=== PATIENT | male | born 1985 | race Hispanic/Latino ===

== ENCOUNTER 2018-02-28 14:04 | Emergency (ER) | payer SELFPAY ==
--- NOTE | 2018-02-28 14:41 | RAD ---
LEFT HAND 3 VIEWS: Date: )02/28/18 HISTORY: Hand pain and swelling after trauma. FINDINGS: There are arthritic changes of the base of the fifth metacarpal at its articulation with the hamate. There is what appears to be some probably old post-traumatic change of the PIP joint of the little fi nger. There is no acute bony process. IMPRESSION: No acute injury. POS: [facility]
== END 2018-02-28 14:51 | disposition home or self-care (01) ==
LOC: SCSER 14:04
DX: S60.222A Contusion of left hand, initial encounter (principal); J45.909 Unspecified asthma, uncomplicated; F17.210 Nicotine dependence, cigarettes, uncomplicated; I45.6 Pre-excitation syndrome; W22.03XA Walked into furniture, initial encounter
CPT/HCPCS: 99406

== ENCOUNTER 2018-03-05 19:06 | Observation (INO) | payer SELFPAY ==
[2018-03-05 19:37] LABS: #Basophils 0.1 thou/uL (0.0-0.2); #Eosinphils 0.3 thou/uL (0.0-0.7); #Lymphocytes 2.6 thou/uL (1.20-3.40); #Monocytes 0.9 thou/uL (0.11-0.59); #Neutrophils 11.7 thou/uL (1.40-6.50); %Basophils 0.6 % (0.0-1.0); %Eosinophils 1.9 % (0.0-10.0); %Lymphocytes 16.5 % (21.0-51.0); %Monocytes 5.9 % (0.0-10.0); %Neutrophils 75.2 % (42.0-75.0); Hemoglobin 16.7 g/dL (14.0-18.0); Mean Corpuscular HGB CONC 35.2 g/dL (32.0-36.0); Mean Corpuscular Hemoglobin 33.3 pg (27.0-31.0); Mean Corpuscular Volume 94.4 fl (80.0-94.0); Mean Platelet Volume 8.6 fL (7.4-10.4); Platelet Count 355 thou/uL (130-400); RBC Distribution Width 12.7 % (11.5-14.5); Red Blood Cell (RBC) Count 5.02 mill/uL (4.70-6.10); White Blood Cell (WBC) Count 15.6 thou/uL (4.8-10.8)
--- NOTE | 2018-03-05 19:50 | RAD ---
PORTABLE AP CHEST X-RAY: 03/05/2018 HISTORY: Chest pain with nausea and vomiting for several hours. COMPARISON: 09/30/2015 FINDINGS: The cardiac silhouette and pulmonary vasculature are within normal limits. The lungs remain clear. There has been no interval change from the prior exam. IMPRESSION: No acute cardiopulmonary process. POS: [facility]
[2018-03-05 19:55] LABS: ALT (SGPT) 51 U/L (8-55); AST (SGOT) 30 U/L (5-34); Albumin 4.9 g/dL (3.5-5.0); Alkaline Phosphatase 98 U/L (40-150); Anion Gap 12 mmol/L (10-20); BUN (Urea Nitrogen) 12 mg/dL (8.9-20.6); Bilirubin, Total 0.3 mg/dL (0.2-1.2); Calc. Creatinine Clearance 0 mL/min (70-130); Calcium 10.7 mg/dL (7.8-10.44); Carbon Dioxide 27 mmol/L (22-29); Chloride 102 mmol/L (98-107); Estimated GFR-MDRD Greater than 90; Globulin 3.6 g/dL (2.4-3.5); Glucose 150 mg/dL (70-105); Lipase 34 U/L (8-78); Protein, Total 8.5 g/dL (6.0-8.3); Sodium 137 mmol/L (136-145)
[2018-03-05 19:57] LABS: CKMB 2.1 ng/mL (0-6.6)
[2018-03-05 20:38] LABS: Bilirubin Negative (Negative); Blood, Urine Negative (Negative); Clarity CLEAR (Clear); Glucose, Urine (Dipstick) Negative (Negative); Leukocyte Negative (Negative); Nitrite Negative (Negative); Protein, Urine (Dipstick) Negative (Neg-Trace); Specific Gravity, Urine 1.012 (1.002-1.036); Urobilinogen 0.2 mg/dL (0.2-1.0); pH, Urine 7.5 (5.0-9.0)
[2018-03-05] MEDS ORDERED: diphenhydrAMINE 25 MG CAP ONE ×3 (20:44→20:49)
[2018-03-05] MEDS ORDERED: Ketorolac Tromethamine 30 MG/ML VIAL ONE (20:44)
[2018-03-05] MEDS ORDERED: Acetaminophen 500 MG TAB ONE (20:44)
[2018-03-05] MEDS ORDERED: Water For Inject, Bacteriostat 30 ML ONE (21:23)
[2018-03-05] MEDS ORDERED: Prochlorperazine Maleate 5 MG TAB ONE (21:23)
[2018-03-05] MEDS ORDERED: methylPREDNISolone Sod Succ/PF 125 MG/2 ML VIAL ONE (21:23)
--- NOTE | 2018-03-05 21:34 | CT ---
NONCONTRAST CT HEAD: 03/05/2018 HISTORY: Headache. Hypertension. Headache not relieved after treatment with Motrin. COMPARISON: 09/30/2015 FINDINGS: There is no evidence of a hemorrhage, acute infarction, mass effect, or midline shift. The ventricul ar system is normal in size, shape, and position. A mucus retention cyst is present in the left maxi llary antrum. There has been no other interval change from the prior exam. IMPRESSION: No acute intracranial abnormalities demonstrated. POS: [facility]
--- NOTE | 2018-03-05 21:57 | PDOC.FPRHP ---
- History of Present Illness Chief Complaint: Chest Pain History of Present Illness: 32 yo male presents for evaluation for chest pain. He states that he has had chest congestion and tightness for roughly one week. He notes the pain came on today when he was sitting on the couch. He does note the pain seems to worsen when he increases his activity level. He states that he has had associated nausea, cough and headache. His headache just began today and hasn't been relieved. 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 He also states that he has asthma, but he does not take any inhalers for this. He denies fevers ,chills, or vision changes. ED Course: Levofloxacin Compazine Solu-medrol 1 L NS bolus Toradol Benadryl Tylenol Duoneb - Allergies/Adverse Reactions Allergies Allergy/AdvReac Type Severity Reaction Status Date / Time No Known Allergies Allergy Verified 03/05/18 23:45 - Home Medications Medication Instructions Recorded Confirmed Type Lisinopril 10 mg PO DAILY 03/23/14 03/05/18 History - History PMHx: Hypertension, Asthma,. 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 Current 1/2 PPD smoker. Drinks alcohol socially approximately twice per month. - Review of Systems General: denies: fever/chills Eyes: denies: eye pain ENT: denies: nasal congestion, rhinorrhea Respiratory: reports: shortness of breath. denies: cough, congestion Cardiovascular: reports: chest pain. denies: palpitation, orthopnea Gastrointestinal: reports: nausea. denies: vomiting, diarrhea, constipation Genitourinary: denies: incontinence Skin: denies: rashes, lesions, jaundice Musculoskeletal: denies: pain, tenderness, stiffness Neurological: denies: numbness, syncope Psychological: denies: anxiety, depression - Vital signs BP: [142/70] HR: [85] RR: [18] Tmax: [98.3] Pox: [97]% on [Rmair] Wt: [98 kg] - Physical Exam Constitutional: NAD, awake, alert and oriented HEENT: PERRLA, TM's clear and intact, grossly normal hearing, normal nasal mucosa, MMM Neck: supple, trachea midline Heart: RRR, normal S1/S2, no murmurs/rubs/gallops, no edema -Lungs: Wheezing bilaterally. Worse on Right side. Abdomen: soft, non-tender, bowel sounds present, no masses/distention Musculoskeletal: normal structure, normal tone, ROM grossly normal Neurological: no focal deficit, CN II-XII intact, normal sensation Skin: no rash/lesions, good turgor Heme/Lymphatic: no unusual bruising or bleeding, no purpura, no petechia Psychiatric: normal mood and affect, good judgment and insight, intact recent and remote memory FMR H&P: Results - Labs Result Diagrams: 03/05/18 19:03/05/18 19: Lab results: WBC 15.6 thou/uL (4.8-10.8) H 03/05/18 19: Hgb 16.7 g/dL (14.0-18.0) 03/05/18: Hct 47.4 % (42.0-52.0) 03/05/18: MCV 94.4 fl (80.0-94.0) H 03/05/18 19: Plt Count 355 thou/uL (130-400) 03/05/18 19: Neutrophils % 75.2 % (42.0-75.0) H 03/05/18 19: Sodium 137 mmol/L (136-145) 03/05/18 19: Potassium 4.0 mmol/L (3.5-5.1) 03/05/18: Chloride 102 mmol/L (98-107) 03/05/18: Carbon Dioxide 27 mmol/L (22-29) 03/05/18 19: BUN 12 mg/dL (8.9-20.6) 03/05/18 19: Creatinine 0.91 mg/dL (0.6-1.3) 03/05/18 19: Glucose 150 mg/dL (70-105) H 03/05/18 19: Calcium 10.7 mg/dL (7.8-10.44) H 03/05/18 19: Total Bilirubin 0.3 mg/dL (0.2-1.2) 03/05/18 19: AST 30 U/L (5-34) 03/05/18 19: ALT 51 U/L (8-55) 03/05/18 19: Alkaline Phosphatase 98 U/L (40-150) 03/05/18 19: CK-MB (CK-2) 2.1 ng/mL (0-6.6) 03/05/18 19: B-Natriuretic Peptide 18.9 pg/mL (0-100) 03/05/18 19:23 Serum Total Protein 8.5 g/dL (6.0-8.3) H 03/05/18 19: Albumin 4.9 g/dL (3.5-5.0) 03/05/18 19: Lipase 34 U/L (8-78) 03/05/18 19: Urine Ketones Negative mg/dL (Negative) 03/05/18 20:25 Urine Blood Negative (Negative) 03/05/18 20: Urine Nitrite Negative (Negative) 03/05/18 20:25 Ur Leukocyte Esterase Negative (Negative) 03/05/18 20:25 - EKG Interpretation EK lead EKG shows normal sinus rhythm, Rate (beats per minute): 95, ST, depression, in lead III, in aVf, new since 30 September 2015, AL 124ms. No delta waves. FMR H&P: A/P - Problem List (1) Asthma exacerbation Current Visit: Yes Status: Acute Code(s): J45.901 - UNSPECIFIED ASTHMA WITH (ACUTE) EXACERBATION (2) Atypical chest pain Current Visit: Yes Status: Acute Code(s): R07.89 - OTHER CHEST PAIN (3) Hyperglycemia Current Visit: Yes Status: Acute Code(s): R73.9 - HYPERGLYCEMIA, UNSPECIFIED (4) HTN (hypertension) Current Visit: Yes Status: Acute Code(s): I10 - ESSENTIAL (PRIMARY) HYPERTENSION - Plan 1. Asthma exacerbation - Steroids - Duonebs - Will hold on antibiotics 2. Atypical chest pain - EKG changes from previous in 2014 - Will consult Cardiology in AM - Troponins negative x2, will trend third - Mg and Phos Pending - Aspirin 3. Hyperglycemia - No diagnosis of DM - Will check HgbA1C 4. HTN - Continue Home Lisinopril CODE STATUS: FULL CODE Disposition: Stable, will admit to Telemetry Observation. FMR H&P: Upper Level - Plan Date/Time: 03/05/182153 I, Tesfaye Saha, have evaluated this patient and agree with findings/plan as outlined by research intern resident. Pertinent changes/additions are listed here. 32 yo M pmhx WPW, asthma, and HTN presents for evaluation of CP. Describes it as left sided, sharp, non-radiating and associated with nausea and SANCHEZ but no diaphoresis or palpitations. Patient also notes a one week history of productive cough, wheezing, and mild dyspnea without fever or chills. No known sick contacts. States that he has associated seasonal allergy type symptoms in the spring. Also smokes 1/2 PPD. Vitals: BP: 142/70 HR: 85 RR: 18 O2 sat: 97% on RA PE: Gen: AAOx3, NAD CV: RRR, no m/g/r Lungs: insp wheezing and rhonchi b/l Ext: no c/c/e Pulses: 2+ LE's b/l EKG: NSR; new ST depression in II, III, and AVF; no delta wave. CXR and Brain CT: no acute disease A/P: 1) Atypical chest pain, suspect 2/2 asthma exacerbation v. less likely ACS: Placing in observation to telemetry floor. New ST depression in inferior leads on ECG but troponins negative so far, will cont. to trend. Pt currently asymptomatic, plan to consult cardiology in AM. NPO after MN. Will treat concurrently for asthma exacerbation with nebs, steroids cough suppressant. Consider adding antihistamine v. Singulair given report of allergy symptoms. Defering abx for now as clinical symptoms not consistent, no hypoxia, and no findings on CXR. 2) H/o WPW: pt states he was diagnosed at this facility but cannot find record of this in EMR and never placed on beta-vasile. Will monitor closely with low threshold for cardiology consult if CP returns. 3) HTN: h/o non-compliance with medications but states he has taken lisinopril the past few days. BP mildly elevated initially in ER. Continue home dosage and adjust if needed. Attending Addendum - Attending Addendum Date/Time: 03/05/18 7218 I personally evaluated the patient and discussed the management with Dr. Mcgraw on 03/05/18. I agree with the History, Examination, Assessment and Plan documented above with any addition or exceptions noted below. Patient with asthma exacerbation, will treat with steroids and nebs. CXR was negative, no fever and minimal cough. Will hold Levaquin for now, as he likely does not have PNA. In addition, he has atypical CP (Jaylin score 0, likely non -anginal) and HEART score of 3 with EKG changes suspicious for ST segment depression, although trop neg x2. Give ASA 81 mg if not given in ER. Check FLP. With questionable history of WPW, will monitor overnight and consult cardiology in the morning. Would likely benefit from stress test given PMH, depending on cardiology recs. In addition, he has hyperglycemia with a random glucose of 150 and obesity. Will check HgA1c to evaluate further for diabetes. Continue lisinopril for HTN. Calcium mildly elevated, will recheck in AM.
[2018-03-05 23:00] LABS: Troponin I Less than 0.010 ng/mL (< 0.028)
[2018-03-05] MEDS ORDERED: Guaifenesin DM 100-10/5 ML UDCUP PO PRN (23:13)
[2018-03-05] MEDS ORDERED: Ondansetron ODT 4 MG TAB PO PRN (23:13)
[2018-03-05 23:38] LABS: Phosphorus 2.7 mg/dL (2.3-4.7)
[2018-03-06] MEDS ORDERED: Aspirin 81 mg Enteric Coated Tablet PO SCH (00:15)
[2018-03-06] MEDS ORDERED: Aspirin 325 mg Enteric Coated Tablet PO SCH (01:31)
[2018-03-06 01:54] LABS: Hemoglobin A1c 6.2 % (4.0-6.0)
[2018-03-06 02:11] LABS: Troponin I 0.019 ng/mL (< 0.028)
[2018-03-06 02:18] LABS: ALT (SGPT) 52 U/L (8-55); AST (SGOT) 24 U/L (5-34); Albumin 4.8 g/dL (3.5-5.0); Alkaline Phosphatase 89 U/L (40-150); Anion Gap 12 mmol/L (10-20); BUN (Urea Nitrogen) 12 mg/dL (8.9-20.6); Bilirubin, Total 0.2 mg/dL (0.2-1.2); Calc. Creatinine Clearance 143 mL/min (70-130); Calcium 11.2 mg/dL (7.8-10.44); Carbon Dioxide 26 mmol/L (22-29); Cardiac Risk 5.4 (Less than 4.5); Chloride 101 mmol/L (98-107); Cholesterol 222 mg/dl (< 200 Desired); Estimated GFR-MDRD 84; Globulin 3.5 g/dL (2.4-3.5); Glucose 236 mg/dL (70-105); HDL Cholesterol 41 mg/dL (>60 Neg Risk); LDL Cholesterol, Calculated 127 mg/dL; Potassium 4.1 mmol/L (3.5-5.1); Protein, Total 8.3 g/dL (6.0-8.3); Sodium 135 mmol/L (136-145); Triglycerides 272 mg/dL (Less than 150)
--- NOTE | 2018-03-06 08:34 | PDOC.FM ---
- Subjective Subjective: Patient reports that his SOB, wheezing, and chest pain have all improved. He is no longer having any chest pain. He reports that his only symptom this AM is a headache. He slept well overnight. - Objective MAR Reviewed: Yes Vital Signs & Weight: Vital Signs (12 hours) Temp Pulse Resp BP BP Pulse Ox 03/06/18 07:40 97.8 F 88 18 03/06/18 07:30 97.8 F 88 18 145/80 H 94 L 03/06/18 04:40 80 18 161/83 H 92 L 03/06/18 01:51 96 Result Diagrams: 03/05/18 19:22 03/06/18 01:37 <Lucy Cole - Last Filed: 03/06/18 08:32> - Objective Vital Signs & Weight: Vital Signs (12 hours) Temp Pulse Resp BP BP Pulse Ox 03/06/18 11:08 97.9 F 90 18 131/73 94 L 03/06/18 07:40 97.8 F 88 18 03/06/18 07:30 97.8 F 88 18 145/80 H 94 L 03/06/18 04:40 80 18 161/83 H 92 L Result Diagrams: 03/05/18 19:22 03/06/18 01:37 <Ruel White - Last Filed: 03/06/18 13:56> Phys Exam - Physical Examination Constitutional: NAD HEENT: moist MMs Respiratory: no wheezing, no rales, no rhonchi, clear to auscultation bilateral Cardiovascular: RRR, no significant murmur, no rub Gastrointestinal: soft, non-tender, no distention, positive bowel sounds Musculoskeletal: no edema, pulses present Neurological: non-focal, moves all 4 limbs Psychiatric: normal affect, A&O x 3 Skin: normal turgor, cap refill <2 seconds <Lucy Cole - Last Filed: 03/06/18 08:32> Dx/Plan (1) Asthma exacerbation Code(s): J45.901 - UNSPECIFIED ASTHMA WITH (ACUTE) EXACERBATION Status: Acute QualifierTitle: Asthma severity: unspecified severity Asthma persistence : unspecified Qualified Code(s): J45.901 - Unspecified asthma with (acute) exacerbation (2) Atypical chest pain Code(s): R07.89 - OTHER CHEST PAIN Status: Acute (3) HTN (hypertension) Code(s): I10 - ESSENTIAL (PRIMARY) HYPERTENSION Status: Acute QualifierTitle: Hypertension type: essential hypertension Qualified Code( s): I10 - Essential (primary) hypertension (4) Hyperglycemia Code(s): R73.9 - HYPERGLYCEMIA, UNSPECIFIED Status: Acute (5) Tobacco abuse Code(s): Z72.0 - TOBACCO USE Status: Acute - Plan Plan: 1. Asthma exacerbation Patient initially had diffuse wheezes on exam associated with a cough and chest tightness. This AM he is much improved with no wheezing. - Steroids - Duonebs - Will hold on antibiotics as there are no signs of infection 2. Atypical chest pain EKG showed ST depression in II and aVF that is new from prior EKG in 2015. Pt is no longer having any chest pain. Trops negative x3 - Will consider cards consult vs have pt f/u outpatient - Aspirin 3. WPW Questionable history per the patient. He states he was diagnosed 4-5 years ago at this facility. No records found at this time. He has never seen a triage registered nurse and has not ever been placed on a medication. No delta waves seen on EKG. - Consider cards consult vs outpatient f/u 4. Hyperglycemia A1c 6.2. - Will international student counselor on diet and exercise - Will have pt f/u with PCP to continue to monitor and international student counselor that he is at risk for developing diabetes if he does not make lifestyle changes 5. HTN Patient reports he takes his lisinopril intermittently. - Continue home Lisinopril 6. Tobacco Abuse - Counseling for cessation <Lucy Cole - Last Filed: 03/06/18 08:32> Attending Addendum - Attending Addendum Date/Time: 03/06/18 9158 I personally evaluated the patient and discussed the management with Dr. Cole. I agree with the History, Examination, Assessment and Plan documented above with any addition or exceptions noted below. Patient admitted for chest tightness thought due to asthma exacerbation, and his symptoms are improved on duonebs and steroid regimen. He did have an initial abnormal EKG which evidence of ischemia in the inferior leads, and has a supposed history of WPW. We will get cardiology input on patient and consider nuclear stress testing due to his complaint and his multiple risk factors for cardiovascular disease. <Ruel White - Last Filed: 03/06/18 13:56>
[2018-03-06] MEDS: Aspirin 81 mg Enteric Coated Tablet PO SCH (09:12)
[2018-03-06] MEDS: predniSONE 20 MG TAB PO SCH (09:12)
[2018-03-06] MEDS ORDERED: Regadenoson 0.4 MG/5 ML SYRINGE ONE (09:49)
[2018-03-06] MEDS: Acetaminophen 325 MG TAB PO PRN ×2 (11:39→18:44)
[2018-03-06] MEDS ORDERED: Famotidine 20 MG TAB PO SCH (12:00)
[2018-03-06] MEDS: Famotidine 20 MG TAB PO SCH (12:50)
[2018-03-06 13:32] LABS: Amphetamine Not Detected (NotDetected); Barbiturates Screen Not Detected (NotDetected); Benzodiazepine Screen Not Detected (NotDetected); Cocaine Metabolite Screen Not Detected (NotDetected); Medtox Control Line Valid? VALID (VALID); Medtox Reader # READER 1; Methadone Not Detected (NotDetected); Methamphetamine Not Detected (NotDetected); Opiate Screen Detected (NotDetected); Oxycodone Screen Not Detected (NotDetected); Phencyclidine (PCP) Not Detected (NotDetected); THC/Cannabinoid Screen Not Detected (NotDetected); Tricyclic Screen Not Detected (NotDetected)
[2018-03-06] MEDS ORDERED: Atorvastatin Calcium 40 MG TAB PO SCH (21:00)
--- NOTE | 2018-03-06 23:45 | PDOC.EVN ---
Event Note - Event Note Event Note: Residents were notified of patient having HR of 120s-150s. Residents arrived to evaluate patient. He was resting in no acute distress. He only admits to being able to feel his heart racing. No other complaints. Cardiology was called and they recommended no intervention at this time. Cardiology did recommend Diltiazem if patient became symptomatic. Will hold off on treatment at this time.
[2018-03-07] MEDS: traMADol HCl 50 MG TAB PO PRN ×2 (01:20→08:32)
[2018-03-07] MEDS: Acetaminophen 325 MG TAB PO PRN ×2 (01:20→08:32)
[2018-03-07] MEDS ORDERED: HumaLOG 300 UNITS/3 ML VIAL SC PRN ×2 (03:13)
[2018-03-07] MEDS ORDERED: Dextrose 5% in Water 1,000 ML IV PRN (03:13)
[2018-03-07] MEDS ORDERED: Dextrose 50% Abboject 50 ML SYRINGE IVP PRN (03:13)
[2018-03-07] MEDS ORDERED: CEFAZOLIN/Water 2 GM/20 ML SYRINGE SLOW IVP SCH (03:30)
[2018-03-07 04:14] VITALS: TEMP 98.3
[2018-03-07 07:14] LABS: #Basophils 0.1 thou/uL (0.0-0.2); #Eosinphils 0.1 thou/uL (0.0-0.7); #Lymphocytes 3.6 thou/uL (1.20-3.40); #Monocytes 1.4 thou/uL (0.11-0.59); #Neutrophils 12.1 thou/uL (1.40-6.50); %Basophils 0.4 % (0.0-1.0); %Eosinophils 0.4 % (0.0-10.0); %Lymphocytes 20.9 % (21.0-51.0); %Monocytes 8.4 % (0.0-10.0); Hemoglobin 14.6 g/dL (14.0-18.0); Mean Corpuscular HGB CONC 33.4 g/dL (32.0-36.0); Mean Corpuscular Hemoglobin 32.1 pg (27.0-31.0); Mean Corpuscular Volume 96.2 fl (80.0-94.0); Mean Platelet Volume 8.5 fL (7.4-10.4); Platelet Count 348 thou/uL (130-400); RBC Distribution Width 13.2 % (11.5-14.5); Red Blood Cell (RBC) Count 4.54 mill/uL (4.70-6.10); White Blood Cell (WBC) Count 17.2 thou/uL (4.8-10.8)
[2018-03-07 07:56] LABS: Anion Gap 14 mmol/L (10-20); BUN (Urea Nitrogen) 25 mg/dL (8.9-20.6); Calc. Creatinine Clearance 170 mL/min (70-130); Calcium 9.3 mg/dL (7.8-10.44); Carbon Dioxide 23 mmol/L (22-29); Chloride 106 mmol/L (98-107); Estimated GFR-MDRD Greater than 90; Glucose 136 mg/dL (70-105); Sodium 139 mmol/L (136-145)
[2018-03-07] MEDS: Famotidine 20 MG TAB PO SCH (08:30)
[2018-03-07] MEDS: predniSONE 20 MG TAB PO SCH (08:31)
[2018-03-07] MEDS: Aspirin 81 mg Enteric Coated Tablet PO SCH (08:31)
--- NOTE | 2018-03-07 08:54 | PDOC.FM ---
- Subjective Subjective: Patient was seen after stress test and he reports some chest tightness and SOB during the stress test this AM. He reports continued productive cough and congestion. He denies any chest pain. He reports that he could feel his heart racing yesterday afternoon, but didn't have any lightheadedness, dizziness, or pain. - Objective MAR Reviewed: Yes Vital Signs & Weight: Vital Signs (12 hours) Temp Pulse Resp BP BP Pulse Ox 03/07/18 07:46 98.3 F 79 20 03/07/18 04:00 98.3 F 79 20 136/77 95 03/06/18 23:35 98 F 100 15 158/77 H 94 L Weight Weight 98.157 kg I&O: 03/06/18 03/07/18 03/08/18 06:59 06:59 06:59 Intake Total 700 Output Total 525 Balance 175 Result Diagrams: 03/07/18 07:03 03/07/18 07:03 <Lucy Cole - Last Filed: 03/07/18 09:15> - Objective Vital Signs & Weight: Vital Signs (12 hours) Temp Pulse Resp BP BP Pulse Ox 03/07/18 12:00 98.3 F 75 18 131/81 93 L 03/07/18 10:45 70 16 97 03/07/18 10:42 140/78 03/07/18 07:46 98.3 F 79 20 03/07/18 04:00 98.3 F 79 20 136/77 95 Weight Weight 98.157 kg I&O: 03/06/18 03/07/18 03/08/18 06:59 06:59 06:59 Intake Total 700 Output Total 525 Balance 175 Result Diagrams: 03/07/18 07:03 03/07/18 07:03 <Anthony Floyd - Last Filed: 03/07/18 13:31> Phys Exam - Physical Examination Constitutional: NAD HEENT: moist MMs Respiratory: no rales, no rhonchi, wheezing present (bilaterally) Cardiovascular: RRR, no significant murmur, no rub Gastrointestinal: soft, non-tender, no distention, positive bowel sounds Musculoskeletal: no edema, pulses present Neurological: non-focal, moves all 4 limbs Psychiatric: normal affect, A&O x 3 Skin: normal turgor, cap refill <2 seconds <Lucy Cole - Last Filed: 03/07/18 09:15> Dx/Plan (1) Asthma exacerbation Code(s): J45.901 - UNSPECIFIED ASTHMA WITH (ACUTE) EXACERBATION Status: Acute QualifierTitle: Asthma severity: unspecified severity Asthma persistence : unspecified Qualified Code(s): J45.901 - Unspecified asthma with (acute) exacerbation (2) Atypical chest pain Code(s): R07.89 - OTHER CHEST PAIN Status: Acute (3) HTN (hypertension) Code(s): I10 - ESSENTIAL (PRIMARY) HYPERTENSION Status: Acute QualifierTitle: Hypertension type: essential hypertension Qualified Code( s): I10 - Essential (primary) hypertension (4) Hyperglycemia Code(s): R73.9 - HYPERGLYCEMIA, UNSPECIFIED Status: Acute (5) Tobacco abuse Code(s): Z72.0 - TOBACCO USE Status: Acute (6) Leukocytosis Code(s): D72.829 - ELEVATED WHITE BLOOD CELL COUNT, UNSPECIFIED Status: Acute QualifierTitle: Leukocytosis type: unspecified Qualified Code(s): D72.829 - Elevated white blood cell count, unspecified - Plan Plan: Asthma exacerbation Patient initially had diffuse wheezes on exam associated with a cough and chest tightness. His wheezes have returned this AM. He reports that he hasn't had a breathing treatment in a while. - Prednisone - Albuterol nebs - Will hold on antibiotics as there are no signs of infection Atypical chest pain EKG showed ST depression in II and aVF that is new from prior EKG in 2015. Pt is no longer having any chest pain. Trops negative x3 - Stress test - Aspirin WPW Questionable history per the patient. He states he was diagnosed 4-5 years ago at this facility. No records found at this time. He has never seen a recovery operator helper and has not ever been placed on a medication. No delta waves seen on EKG. - Consider cards consult vs outpatient f/u Sinus Tachycardia Tele: showed sinus tach from [id number] yesterday afternoon to this AM, then the patient went into NSR. The patient was asymptomatic except feeling his heart racing. EKG didn't show any new changes. - Continue to monitor on tele Leukocytosis Likely 2/2 prednisone use. No current signs/symptoms of infection - Will continue to monitor Prediabetes A1c 6.2. - Will bereavement counselor on diet and exercise - Will have pt f/u outpt to continue to monitor and bereavement counselor that he is at risk for developing diabetes if he does not make lifestyle changes. Patient does not have a PCP or insurance, so gave him a flier for [facility]. HTN Patient reports he takes his lisinopril intermittently. - Continue home Lisinopril Tobacco Abuse - Counseled the patient about cessation this AM <Lucy Cole - Last Filed: 03/07/18 09:15> Attending Addendum - Attending Addendum Date/Time: 03/07/18 1397 I personally evaluated the patient and discussed the management with Dr. Cole I agree with the History, Examination, Assessment and Plan documented above with any addition or exceptions noted below. Patient improved regard acute asthmatic exacerbation,will need out patient f/u prediabetes, records review does not currently substantiate any prior pre- excitation syndrome, negative stress testing obtained with this hospitalization appreciate Cardiology recommendations, current and reviewed EKG's lacks delta wave consistent with WPW follow expectantly. Patient stable for dismissal with outpatient follow up. <Anthony Floyd - Last Filed: 03/07/18 13:31>
[2018-03-07] MEDS ORDERED: Lisinopril 5 MG TAB PO SCH (09:00)
--- NOTE | 2018-03-07 09:25 | NM ---
RADIONUCLIDE STRESS REST MYOCARDIAL PERFUSION SCAN WITH CT ATTENUATION CORRECTION AND SPECT IMAGING LEFT VENTRICULAR WALL MOTION EVALUATION AND EJECTION FRACTION: History: Chest pain. FINDINGS: Lexiscan protocol was used. There is homogeneous uptake of radiotracer throughout the left ventricula r myocardium on the stress and rest images. No focal perfusion defect or significant reversibility. Q GS analysis of gated SPECT images shows no focal wall motion abnormalities. Left ventricular ejection fraction is calculated at 56%. IMPRESSION: Normal myocardial perfusion scan. Normal LVEF. POS: [facility]
[2018-03-07] MEDS: Albuterol Sulfate 2.5 mg/3 ml Neb NEB SCH ×2 (10:45→13:51)
[2018-03-07] MEDS ORDERED: Ibuprofen 800 MG TAB PO SCH (11:15)
[2018-03-07 12:13] VITALS: BP 131/81
--- NOTE | 2018-03-07 15:46 | EKG ---
Test Reason : STAT Blood Pressure : / mmHG Vent. Rate : 110 BPM Atrial Rate : 110 BPM P-R Int : 124 ms QRS Dur : 088 ms QT Int : 316 ms P-R-T Axes : 064 062 -48 degrees QTc Int : 427 ms Sinus tachycardia Moderate voltage criteria for LVH, may be normal variant Abnormal ECG Confirmed by JOI BARBER ([id number]) on 03/07/2018 3:46:01 PM Referred By: SHELBY Confirmed By:JOI BARBER
--- NOTE | 2018-03-08 13:40 | DIS-2 ---
DATE OF ADMISSION: 03/05/2018 DATE OF DISCHARGE: 03/07/2018 ADMITTING ATTENDING: Denise Valladares D.O. DISCHARGE ATTENDING: Anthony Floyd M.D. ATTENDING RESIDENT: Chirag Mcgraw M.D. DISCHARGE RESIDENT: Lucy Cole M.D. CONSULTATIONS: None. PROCEDURES: Nuclear stress test showed normal myocardial perfusion scan with an EF of 56%. PRIMARY DIAGNOSES: 1. Acute asthma exacerbation. 2. Atypical chest pain. 3. WPW. SECONDARY DIAGNOSES: 1. Tobacco abuse. 2. History of drug abuse. DISCHARGE MEDICATIONS: 1. Albuterol sulfate 18 grams inhaled q.2 h. 1 inhaler. 2. Atorvastatin 40 mg p.o. at bedtime. 3. Famotidine 20 mg p.o. b.i.d. 4. Lisinopril 10 mg p.o. daily. 5. Prednisone 40 mg p.o. daily for 3 days. DISCONTINUED MEDICATIONS: None. HISTORY OF PRESENT ILLNESS AND HOSPITAL COURSE: This is a 32-year-old male with a questionable histo ry of WPW, who presents due to chest tightness, cough and wheezing have been going on for a week and one day history of chest pain. The patient also has episodes of palpitations. The patient had not b een seen by a machine cementer and folder for this questionable WPW, but reports to have been diagnosed 5 years ago at this facility. The patient had some ST depressions in leads II, III, and AVF on initial EKG that appeared to have resolved on the repeat EKG. The patient was found initially to have significant whe ezing on exam as well as decreased air movement. This improved with albuterol nebulizers. The patie nt has a history of asthma. This was treated with p.r.n. albuterol. Patient's initial chest x-ray s howed no signs of pneumonia and the patient's case was discussed with Cardiology and they said that w as appropriate to proceed with stress test as the patient had heart score of 3 and significant risk f actors for coronary artery disease despite his age. The patient was started on prednisone and albute rol nebs for the asthma exacerbation and then we did a 2-day stress test in him. The patient improve d from an asthma standpoint with the nebs and the steroids and the patient was also treated with aspi rin and was started on atorvastatin due to his significant risk factors. The patient's stress test r esults returned normal. The patient was counseled about tobacco cessation as well as the importance of followup with a PCP, given a flier for [facility] as he does not have insurance. The patient during his hospitalization had elevated blood glucose and so hemoglobin A1c was checked and was found to be in the prediabetes range of 6.2%. The patient's results were discussed with him and importanc e of follow up with PCP was again reinforced. The patient did have one episode, where his heart rate jumped up into the 140s and then came back down to the low 100s to the back into normal sinus rhythm . This was discussed again with Cardiology and they said that if this happened again, he could be pu t on , especially if he was symptomatic. However, this did not happen again. Cardiology did no t want to be consulted at that time. The patient was encouraged to follow up with [facility], so that he get established with them potentially get a diagnosis and follow up with Cardiology outpatie nt. The patient had no Delta waves on EKG. DISPOSITION: Stable. DISCHARGE INSTRUCTIONS: 1. Location: Home. 2. Diet: Heart healthy. 3. Activity: As tolerated. 4. Follow up with [facility] within 7 to 14 days.
== END 2018-03-07 13:52 | disposition home or self-care (01) ==
LOC: ERS 19:06 → 2SW 23:11
PROVIDERS: ADMIT Family Medicine; ATTEND Family Medicine
DX: J45.901 Unspecified asthma with (acute) exacerbation (principal); R07.89 Other chest pain; I45.6 Pre-excitation syndrome; I10 Essential (primary) hypertension; F17.210 Nicotine dependence, cigarettes, uncomplicated; F12.11 Cannabis abuse, in remission; F15.11 Other stimulant abuse, in remission; R73.9 Hyperglycemia, unspecified; D72.829 Elevated white blood cell count, unspecified; Z79.899 Other long term (current) drug therapy
CPT/HCPCS: 36415; 36416; 70450; 71045; 78452; 80048; 80053; 80061; 80306; 81003; 82553; 83036; 83690; 83735; 83880; 84100; 84443; 84484; 85025; 87040; 93005; 93010; 93017; 94640; 94760; 96361; 96365; 96375; A9500; G0378; J1885; J1956; J2785; J2930; J7506; J7611; J7620; Q0164

== ENCOUNTER 2018-08-26 23:55 | Emergency (ER) | payer SELFPAY ==
[2018-08-27 01:32] LABS: #Basophils 0.1 thou/uL (0.0-0.2); #Eosinphils 0.3 thou/uL (0.0-0.7); #Lymphocytes 3.4 thou/uL (1.20-3.40); #Monocytes 0.8 thou/uL (0.11-0.59); #Neutrophils 7.1 thou/uL (1.40-6.50); %Basophils 0.6 % (0.0-1.0); %Lymphocytes 28.8 % (21.0-51.0); %Monocytes 6.7 % (0.0-10.0); Hemoglobin 13.9 g/dL (14.0-18.0); Mean Corpuscular HGB CONC 34.2 g/dL (32.0-36.0); Mean Corpuscular Hemoglobin 32.4 pg (27.0-31.0); Mean Corpuscular Volume 94.8 fL (78.0-98.0); Mean Platelet Volume 9.3 fL (7.4-10.4); Platelet Count 287 thou/uL (130-400); RBC Distribution Width 12.3 % (11.5-14.5); Red Blood Cell (RBC) Count 4.27 mill/uL (4.70-6.10); White Blood Cell (WBC) Count 11.7 thou/uL (4.8-10.8)
[2018-08-27 01:40] LABS: Alcohol 222 mg/dL (Less than 10); Anion Gap 14 mmol/L (10-20); BUN (Urea Nitrogen) 9 mg/dL (8.9-20.6); Calc. Creatinine Clearance 0 mL/min (70-130); Calcium 9.2 mg/dL (7.8-10.44); Carbon Dioxide 22 mmol/L (22-29); Chloride 108 mmol/L (98-107); Estimated GFR-MDRD 85; Glucose 167 mg/dL (70-105); Potassium 3.2 mmol/L (3.5-5.1); Sodium 141 mmol/L (136-145)
[2018-08-27] MEDS ORDERED: Adacel (T-DAP) 0.5 ML VIAL ONE (02:34)
[2018-08-27] MEDS ORDERED: Ketorolac Tromethamine 60 MG/2 ML VIAL ONE (02:34)
== END 2018-08-27 03:25 | disposition home or self-care (01) ==
LOC: ERS 23:55
DX: S51.811A Laceration without foreign body of right forearm, initial encounter (principal); F10.129 Alcohol abuse with intoxication, unspecified; Y90.7 Blood alcohol level of 200-239 mg/100 ml; I10 Essential (primary) hypertension; J45.909 Unspecified asthma, uncomplicated; F17.210 Nicotine dependence, cigarettes, uncomplicated; G20 Parkinson's disease; Z91.14 Patient's other noncompliance with medication regimen; Z23 Encounter for immunization; X58.XXXA Exposure to other specified factors, initial encounter
CPT/HCPCS: 12002; 80048; 80307; 85025; 90471; 90715; 93005; 96372; J1885

== ENCOUNTER 2018-08-29 15:16 | Emergency (ER) | payer SELFPAY ==
[~2018-08-29 15:16] MED LIST: Iopamidol 370 76% 100 ML VIAL ONE
[2018-08-29] MEDS ORDERED: Aspirin 325 MG TAB ONE (15:46)
[2018-08-29] MEDS ORDERED: Lidocaine Viscous Sol 2% 15 ml UD Cup ONE (15:47)
[2018-08-29] MEDS ORDERED: Mag-Al Plus 1200 MG/1200 MG/120 MG/30 ML UDCUP ONE (15:47)
[2018-08-29] MEDS ORDERED: Nitroglycerin 2% Ointment 1 INCH/1 GM Packet ONE (15:47)
[2018-08-29] MEDS ORDERED: Pantoprazole 40 MG VIAL ONE (15:47)
[2018-08-29 15:50] LABS: #Basophils 0.1 thou/uL (0.0-0.2); #Eosinphils 0.4 thou/uL (0.0-0.7); #Lymphocytes 2.5 thou/uL (1.20-3.40); #Monocytes 0.8 thou/uL (0.11-0.59); #Neutrophils 7.9 thou/uL (1.40-6.50); %Eosinophils 3.8 % (0.0-10.0); %Lymphocytes 21.4 % (21.0-51.0); %Monocytes 6.8 % (0.0-10.0); %Neutrophils 67.1 % (42.0-75.0); Hemoglobin 14.2 g/dL (14.0-18.0); Mean Corpuscular HGB CONC 33.3 g/dL (32.0-36.0); Mean Corpuscular Hemoglobin 30.6 pg (27.0-31.0); Mean Corpuscular Volume 92.1 fL (78.0-98.0); Mean Platelet Volume 11.4 fL (7.4-10.4); Platelet Count 233 thou/uL (130-400); RBC Distribution Width 12.7 % (11.5-14.5); Red Blood Cell (RBC) Count 4.63 mill/uL (4.70-6.10); White Blood Cell (WBC) Count 11.7 thou/uL (4.8-10.8)
[2018-08-29 16:09] LABS: ALT (SGPT) 98 U/L (8-55); AST (SGOT) 54 U/L (5-34); Albumin 4.5 g/dL (3.5-5.0); Alkaline Phosphatase 104 U/L (40-150); Anion Gap 15 mmol/L (10-20); BUN (Urea Nitrogen) 10 mg/dL (8.9-20.6); Bilirubin, Total 0.3 mg/dL (0.2-1.2); CK (CPK) 303 U/L (30-200); CKMB 2.2 ng/mL (0-6.6); Calc. Creatinine Clearance 0 mL/min (70-130); Calcium 9.8 mg/dL (7.8-10.44); Carbon Dioxide 22 mmol/L (22-29); Chloride 105 mmol/L (98-107); Estimated GFR-MDRD Greater than 90; Globulin 3.6 g/dL (2.4-3.5); Glucose 112 mg/dL (70-105); Lipase 26 U/L (8-78); Potassium 3.8 mmol/L (3.5-5.1); Protein, Total 8.1 g/dL (6.0-8.3); Sodium 138 mmol/L (136-145); Troponin I 0.018 ng/mL (< 0.028)
--- NOTE | 2018-08-29 16:19 | RAD ---
UPRIGHT PORTABLE CHEST ONE VIEW: History: 33-year-old male with history of epigastric pain radiating to back. FINDINGS: Monitor leads overlie the chest. There is some vertically oriented linear parenchymal changes in the left mid lower lung zone which appear to represent old scarring. No confluent pneumonia, overt edema, or pleural effusion. IMPRESSION: Linear vertically scarring in the left mid and lower lung zone. No pneumonia, edema, or other signifi cant acute process. Stable from prior study. POS: [facility]
[2018-08-29 16:28] LABS: Bilirubin Negative (Negative); Blood, Urine Negative (Negative); Clarity Clear (Clear); Glucose, Urine (Dipstick) Negative (Negative); Leukocyte Negative (Negative); Nitrite Negative (Negative); Protein, Urine (Dipstick) Negative (Neg-Trace); Urobilinogen 0.2 mg/dL (0.2-1.0)
--- NOTE | 2018-08-29 16:40 | CT ---
CT ABDOMEN AND PELVIS WITH IV CONTRAST: DATE: 09/07/2018. PROVIDED CLINICAL HISTORY: Epigastric pain. FINDINGS: Comparison is made with the study dated 09/01/2010. The visualized lung bases are free of significant opacity. There is diffusely prominent fatty infiltration of the liver again noted. The solid abdominal organs demonstrate an otherwise unremarkable CT appearance. There is no bowel dilatation, inflammatory fat stranding, free fluid, or free air apparent. The osseous structures demonstrate no concerning lytic or blastic lesions. IMPRESSION: 1. No evidence for an acute abnormality. 2. Diffuse fatty infiltration of the liver. POS: [facility]
[2018-08-29 17:10] LABS: Amphetamine Not Detected (NotDetected); Barbiturates Screen Not Detected (NotDetected); Benzodiazepine Screen Not Detected (NotDetected); Cocaine Metabolite Screen Not Detected (NotDetected); Medtox Control Line Valid? VALID (VALID); Methadone Not Detected (NotDetected); Methamphetamine Not Detected (NotDetected); Opiate Screen Not Detected (NotDetected); Oxycodone Screen Not Detected (NotDetected); Phencyclidine (PCP) Not Detected (NotDetected); THC/Cannabinoid Screen Detected (NotDetected); Tricyclic Screen Not Detected (NotDetected)
[2018-08-29] MEDS ORDERED: Acetaminophen 500 MG TAB ONE (18:04)
[2018-08-29] MEDS ORDERED: Acetaminophen 325 MG TAB PO PRN (23:21)
[2018-08-29] MEDS ORDERED: Ondansetron HCl/PF 4 MG/2 ML Vial IVP PRN (23:21)
[2018-08-29] MEDS ORDERED: Sodium Chloride 0.9% 1,000 ML IV SCH (23:45)
[2018-08-30] MEDS ORDERED: Mometasone/Formoterol 120 PUFF INHALER INH SCH (06:30)
[2018-08-30] MEDS ORDERED: Famotidine 20 MG TAB PO SCH (09:00)
[2018-08-30] MEDS ORDERED: Lisinopril 10 MG TAB PO SCH (09:00)
[2018-08-30] MEDS ORDERED: Atorvastatin Calcium 40 MG TAB PO SCH (21:00)
== END 2018-08-29 18:38 | disposition left against medical advice (07) ==
LOC: SCSER 15:16
DX: I16.0 Hypertensive urgency (principal); F17.210 Nicotine dependence, cigarettes, uncomplicated; J45.909 Unspecified asthma, uncomplicated; I45.6 Pre-excitation syndrome; Z79.899 Other long term (current) drug therapy
CPT/HCPCS: 71045; 74176; 80053; 80306; 81003; 82553; 83690; 84484; 85025; 93005; 96374; C9113

== ENCOUNTER 2019-02-14 20:17 | Emergency (ER) | payer SELFPAY | END 2019-02-14 20:40 | disposition home or self-care (01) | LOC: SCSER 20:17 | DX: J06.9 Acute upper respiratory infection, unspecified (principal); I45.6 Pre-excitation syndrome; E11.9 Type 2 diabetes mellitus without complications; I10 Essential (primary) hypertension; J45.909 Unspecified asthma, uncomplicated; F17.210 Nicotine dependence, cigarettes, uncomplicated; Z79.899 Other long term (current) drug therapy | CPT/HCPCS: 99283 ==

== ENCOUNTER 2019-03-01 23:03 | Emergency (ER) | payer SELFPAY ==
[2019-03-01] MEDS ORDERED: Adacel (T-DAP) 0.5 ML SYRINGE ONE (23:16)
[2019-03-01] MEDS ORDERED: Lidocaine 1% (PF) 30 ML VIAL ONE (23:30)
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
[2019-03-02] MEDS ORDERED: Bacitracin Zinc 1 Packet ONE (00:11)
== END 2019-03-02 00:20 ==
LOC: ERS 23:03
DX: S61.216A Laceration without foreign body of right little finger without damage to nail, initial encounter (principal); F10.129 Alcohol abuse with intoxication, unspecified; E11.9 Type 2 diabetes mellitus without complications; I45.6 Pre-excitation syndrome; I10 Essential (primary) hypertension; F17.210 Nicotine dependence, cigarettes, uncomplicated; Z23 Encounter for immunization; W25.XXXA Contact with sharp glass, initial encounter; Y92.009 Unspecified place in unspecified non-institutional (private) residence as the place of occurrence of the external cause
CPT/HCPCS: 12001; 90471; 90715; J2001

== ENCOUNTER 2019-05-04 23:19 | Emergency (ER) | payer SELFPAY ==
--- NOTE | 2019-05-04 23:50 | RAD ---
XR Chest 1 View Portable History: Chest pain Comparison: Radiograph August 29, 2018 Findings: Lungs are clear. No pneumothorax or effusion. Cardiac silhouette and mediastinal contours a re within normal limits. No acute osseous abnormality. Impression: No acute intrathoracic abnormality.
[2019-05-04 23:57] LABS: #Basophils 0.1 thou/uL (0.0-0.2); #Eosinphils 0.3 thou/uL (0.0-0.7); #Lymphocytes 2.8 thou/uL (1.20-3.40); #Monocytes 0.8 thou/uL (0.11-0.59); #Neutrophils 7.5 thou/uL (1.40-6.50); %Basophils 0.9 % (0.0-1.0); %Eosinophils 2.8 % (0.0-10.0); %Lymphocytes 24.4 % (21.0-51.0); %Neutrophils 64.9 % (42.0-75.0); Mean Corpuscular HGB CONC 33.3 g/dL (32.0-36.0); Mean Corpuscular Hemoglobin 32.6 pg (27.0-31.0); Mean Corpuscular Volume 97.7 fL (78.0-98.0); Platelet Count 301 thou/uL (130-400); RBC Distribution Width 12.2 % (11.5-14.5); White Blood Cell (WBC) Count 11.5 thou/uL (4.8-10.8)
[2019-05-05 00:20] LABS: ALT (SGPT) 69 U/L (8-55); AST (SGOT) 39 U/L (5-34); Albumin 4.2 g/dL (3.5-5.0); Alkaline Phosphatase 111 U/L (40-150); Anion Gap 17 mmol/L (10-20); BUN (Urea Nitrogen) 8 mg/dL (8.9-20.6); Bilirubin, Total 0.2 mg/dL (0.2-1.2); CK (CPK) 393 U/L (30-200); Calc. Creatinine Clearance 0 mL/min (70-130); Calcium 9.4 mg/dL (7.8-10.44); Carbon Dioxide 21 mmol/L (22-29); Chloride 104 mmol/L (98-107); Estimated GFR-MDRD 71; Globulin 2.9 g/dL (2.4-3.5); Glucose 189 mg/dL (70-105); Lipase 49 U/L (8-78); Potassium 3.3 mmol/L (3.5-5.1); Protein, Total 7.1 g/dL (6.0-8.3); Sodium 139 mmol/L (136-145)
[2019-05-05 02:06] LABS: Troponin I Less than 0.010 ng/mL (< 0.028)
== END 2019-05-05 04:11 | disposition home or self-care (01) ==
LOC: ERS 23:19
DX: R07.2 Precordial pain (principal); I49.9 Cardiac arrhythmia, unspecified; E11.9 Type 2 diabetes mellitus without complications; I10 Essential (primary) hypertension; F17.210 Nicotine dependence, cigarettes, uncomplicated; Z79.899 Other long term (current) drug therapy
CPT/HCPCS: 36415; 71045; 80053; 82550; 83690; 84484; 85025; 93005; 96360

== ENCOUNTER 2020-10-24 11:30 | Emergency (ER) | payer SELFPAY ==
[2020-10-24 12:18] LABS: Hemoglobin 15.4 g/dL (14.0-18.0); Mean Corpuscular HGB CONC 33.1 g/dL (32.0-36.0); Mean Corpuscular Volume 96.6 fL (78.0-98.0); Mean Platelet Volume 8.6 fL (7.4-10.4); Platelet Count 393 thou/uL (130-400); RBC Distribution Width 11.9 % (11.5-14.5); Red Blood Cell (RBC) Count 4.81 mill/uL (4.70-6.10); White Blood Cell (WBC) Count 21.4 thou/uL (4.8-10.8)
[2020-10-24 12:29] LABS: ALT (SGPT) 28 U/L (8-55); AST (SGOT) 14 U/L (5-34); Albumin 4.2 g/dL (3.5-5.0); Alkaline Phosphatase 146 U/L (40-110); Anion Gap 16 mmol/L (10-20); BUN (Urea Nitrogen) 15 mg/dL (8.9-20.6); Bilirubin, Total 0.4 mg/dL (0.2-1.2); Calc. Creatinine Clearance 0 mL/min (70-130); Calcium 9.7 mg/dL (7.8-10.44); Carbon Dioxide 24 mmol/L (22-29); Chloride 97 mmol/L (98-107); Globulin 4.5 g/dL (2.4-3.5); Glucose 248 mg/dL (70-105); Potassium 4.2 mmol/L (3.5-5.1); Protein, Total 8.7 g/dL (6.0-8.3); Sodium 133 mmol/L (136-145)
[2020-10-24 12:30] LABS: Band 7 % (5-11); Lymphocytes 11 % (21-51); MDiff Complete? YES; Monocytes 5 % (0-10); Neutrophil 72 % (42-75); RBC Morphology Normal; Reactive Lymphocytes 5 % (0-10)
[2020-10-24] MEDS ORDERED: Albuterol 200 PUFF (6.7GM INHALER) ONE (12:49)
[2020-10-24] MEDS ORDERED: Dexamethasone 10 MG/ML VIAL ONE (12:50)
[2020-10-24] MEDS ORDERED: cefTRIAXone\\ROCEPHIN 2 GM VIAL ONE (12:50)
--- NOTE | 2020-10-24 12:52 | RAD ---
XR Chest 1 View Portable History: Cough. Chest pain Comparison: Radiograph May 04, 2019 Findings: Abnormal scarring within left upper lobe and lingula likely sequelae of bronchial tree age. No pneumothorax. Cardiac silhouette and mediastinal contours are within normal limits. No acute osseous abnormality. Impression: No acute intrathoracic abnormality.
[2020-10-24] MEDS ORDERED: Azithromycin 500 MG VIAL ONE (13:22)
[2020-10-24 23:11] LABS: SARS-CoV-2 MS2 Positive; SARS-CoV-2 N Gene Negative; SARS-CoV-2 S Gene Negative; SARS-CoV-2 by NAA Not Detected (NotDetected); SARS-CoV-2 orf1ab Negative
== END 2020-10-24 14:52 | disposition home or self-care (01) ==
LOC: ERS 11:30
DX: J18.9 Pneumonia, unspecified organism (principal); Z20.828 Contact with and (suspected) exposure to other viral communicable diseases; E11.9 Type 2 diabetes mellitus without complications; I10 Essential (primary) hypertension; Z79.899 Other long term (current) drug therapy
CPT/HCPCS: 36415; 71045; 80053; 83605; 84484; 85025; 87040; 87635; 93005; 94664; 96365; 96375; J0456; J0696; J1100; U0003

== ENCOUNTER 2020-11-08 18:48 | Emergency (ER) | payer SELFPAY ==
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
== END 2020-11-08 20:15 | disposition home or self-care (01) ==
LOC: ERS 18:48
DX: S09.90XA Unspecified injury of head, initial encounter (principal); S16.1XXA Strain of muscle, fascia and tendon at neck level, initial encounter; E11.9 Type 2 diabetes mellitus without complications; I10 Essential (primary) hypertension; F17.210 Nicotine dependence, cigarettes, uncomplicated; Z79.899 Other long term (current) drug therapy; V89.2XXA Person injured in unspecified motor-vehicle accident, traffic, initial encounter
CPT/HCPCS: 70450; 71045; 72125; 94760

== ENCOUNTER 2024-03-16 08:54 | Inpatient (IN) | payer OTHER, SELFPAY ==
[2024-03-16] MEDS ORDERED: methylPREDNISolone Sod Succ/PF 125 MG/2 ML VIAL ONE (09:12)
[2024-03-16] MEDS ORDERED: Albuterol 2.5 MG (3 mL) NEB ONE ×3 (09:24→12:03)
[2024-03-16] MEDS ORDERED: Ipratropium Bromide 2.5 ml Neb ONE ×3 (09:24→12:03)
[2024-03-16 09:44] LABS: #Basophils 0.07 10x3/uL (0.0-0.2); %Basophils 0.6 % (0.0-1.0); %Eosinophils 2.8 % (0.0-10.0); %Lymphocytes 8.3 % (21.0-51.0); %Monocytes 11.1 % (0.0-10.0); Hematocrit 44.9 % (42.0-52.0); Hemoglobin 15.5 g/dL (14.0-18.0); Mean Corpuscular HGB CONC 34.5 g/dL (32.0-36.0); Mean Corpuscular Hemoglobin 32.8 pg (27.0-31.0); Mean Corpuscular Volume 94.9 fL (78.0-98.0); Mean Platelet Volume 11.6 fL (7.4-10.4); Platelet Count 263 10x3/uL (130-400); RBC Distribution Width 13.7 % (11.5-14.5); Red Blood Cell (RBC) Count 4.73 mill/uL (4.70-6.10)
[2024-03-16 09:54] LABS: Globulin 3.7 g/dL (2.4-3.5)
[2024-03-16 09:59] LABS: ALT (SGPT) 14 U/L (8-55); AST (SGOT) 16 U/L (5-34); Albumin 3.9 g/dL (3.5-5.0); Alkaline Phosphatase 114 U/L (40-110); Anion Gap 12 mmol/L (10-20); BUN (Urea Nitrogen) 13 mg/dL (8.9-20.6); Bilirubin, Total 0.2 mg/dL (0.2-1.2); Calc. Creatinine Clearance 0 mL/min (70-130); Calcium 9.4 mg/dL (7.8-10.44); Carbon Dioxide 22 mmol/L (22-29); Chloride 110 mmol/L (98-107); Estimated GFR 117; Glucose 120 mg/dL (70-105); Protein, Total 7.6 g/dL (6.0-8.3); Sodium 140 mmol/L (136-145)
[2024-03-16 10:45] LABS: Influenza A by NAA Not Detected (NotDetected); Influenza B by NAA Not Detected (NotDetected); SARS-CoV-2 NAA Rapid Test Not Detected (NotDetected)
[2024-03-16] MEDS ORDERED: Magnesium 2 GM/50 ML BAG (IN WATER) ONE (12:10)
[2024-03-16 14:34] VITALS: BMI 28.3
[2024-03-16] MEDS ORDERED: HYDROcodone/Acetaminophen 5/325 mg Tablet PO PRN ×2 (14:35)
[2024-03-16] MEDS ORDERED: Ondansetron PF 4 MG/2 ML Vial IVP PRN (14:35)
[2024-03-16] MEDS ORDERED: Bisacodyl 5 MG TAB PO PRN (14:35)
[2024-03-16] MEDS: methylPREDNISolone Sod Succ 40 MG VIAL IVP SCH (15:34)
[2024-03-16] MEDS: Nicotine 21 MG PATCH TD SCH (15:34)
[2024-03-16] MEDS: Ipratropium/Albuterol 3 ML NEB NEB SCH (19:25)
[2024-03-16] MEDS: Acetaminophen 325 MG TAB PO PRN (20:03)
[2024-03-17] MEDS: Ipratropium/Albuterol 3 ML NEB NEB PRN (06:16)
[2024-03-17 06:17] LABS: Hematocrit 44.9 % (42.0-52.0); Hemoglobin 15.2 g/dL (14.0-18.0); Mean Corpuscular HGB CONC 33.9 g/dL (32.0-36.0); Mean Corpuscular Hemoglobin 32.3 pg (27.0-31.0); Mean Corpuscular Volume 95.3 fL (78.0-98.0); Mean Platelet Volume 11.7 fL (7.4-10.4); Platelet Count 290 10x3/uL (130-400); Red Blood Cell (RBC) Count 4.71 mill/uL (4.70-6.10)
[2024-03-17 06:35] LABS: Anion Gap 16 mmol/L (10-20); BUN (Urea Nitrogen) 17 mg/dL (8.9-20.6); Calc. Creatinine Clearance 125 mL/min (70-130); Calcium 10.1 mg/dL (7.8-10.44); Carbon Dioxide 20 mmol/L (22-29); Chloride 112 mmol/L (98-107); Estimated GFR 112; Glucose 135 mg/dL (70-105); Potassium 4.1 mmol/L (3.5-5.1); Sodium 144 mmol/L (136-145)
[2024-03-17 06:43] LABS: Band 4 % (5-11); Large Platelets 5.1 % (0-5); Lymphocytes 1 % (21-51); Monocytes 4 % (0-10); Neutrophil 91 % (42-75); Platelet Adequacy Comment Platelets Normal; RBC Morphology Within Normal Limits
[2024-03-17] MEDS: Enoxaparin 40 MG (0.4 mL) SYRINGE SC SCH (08:44)
[2024-03-17] MEDS: cefTRIAXone\\ROCEPHIN 1 GM in Sodium Chloride 0.9% 100 ML IVPB SCH (15:22)
[2024-03-17] MEDS: Guaifenesin DM 100-10/5 ML UDCUP PO PRN (15:23)
[2024-03-17] MEDS: Azithromycin 500 MG in Sodium Chloride 0.9% 250 ML 250 ML IVPB SCH (16:08)
[2024-03-17 17:44] LABS: Actual Bicarbonate (HCO3a) 19.8 mEq/L (22-28); Base Excess (BEa) -3.9 mEq/L (-2.0 to +3.0); CO2 Tension 32.4 mmHg (35.0-45.0); Calcium, Ionized (arterial) 1.26 mmol/L (1.12-1.30); Carboxyhemoglobin (COHb) 0.7 gm% (0.0-3.0); Hematocrit-ABG 44 % (42.0-52.0); Hemoglobin (Hb) 14.8 g/dL (14.0-18.0); Potassium - ABG Lab 3.95 mmol/L (3.70-5.30); pH, Arterial 7.404 (7.35-7.45)
[2024-03-17 17:46] LABS: O2 Tension (PaO2), arterial 59.4 mmHg (80.0-100.0); Puncture Site Right Radial
[2024-03-17] MEDS: hydrALAZINE 25 MG TAB PO PRN (18:10)
[2024-03-17] MEDS: Budesonide 0.5 MG/2 ML NEB ONE (21:49)
[2024-03-17] MEDS: Ipratropium/Albuterol 3 ML NEB NEB SCH (21:50)
[2024-03-17] MEDS: Melatonin 3 MG TAB PO SCH (23:23)
[2024-03-18 06:10] LABS: #Basophils 0.04 10x3/uL (0.0-0.2); #Eosinphils Less than 0.03 10x3/uL (0.0-0.7); %Basophils 0.2 % (0.0-1.0); %Lymphocytes 3.8 % (21.0-51.0); %Monocytes 5.4 % (0.0-10.0); %Neutrophils 89.8 % (42.0-75.0); Hematocrit 41.3 % (42.0-52.0); Mean Corpuscular HGB CONC 33.9 g/dL (32.0-36.0); Mean Corpuscular Hemoglobin 32.9 pg (27.0-31.0); Mean Corpuscular Volume 96.9 fL (78.0-98.0); Mean Platelet Volume 11.2 fL (7.4-10.4); Platelet Count 265 10x3/uL (130-400); RBC Distribution Width 14.7 % (11.5-14.5); Red Blood Cell (RBC) Count 4.26 mill/uL (4.70-6.10)
[2024-03-18] MEDS ORDERED: Mometasone 200 MCG/Formoterol 5 MCG 120 PUFF INHALER INH SCH (06:30)
[2024-03-18 06:44] LABS: Anion Gap 16 mmol/L (10-20); BUN (Urea Nitrogen) 20 mg/dL (8.9-20.6); Calc. Creatinine Clearance 139 mL/min (70-130); Calcium 9.4 mg/dL (7.8-10.44); Carbon Dioxide 21 mmol/L (22-29); Chloride 107 mmol/L (98-107); Estimated GFR 116; Glucose 153 mg/dL (70-105); Potassium 3.9 mmol/L (3.5-5.1); Sodium 140 mmol/L (136-145)
[2024-03-18] MEDS: Budesonide 0.5 MG/2 ML NEB INH SCH (07:14)
[2024-03-18] MEDS: Pantoprazole 40 MG VIAL IVP SCH (08:18)
[2024-03-18] MEDS: Amlodipine 5 MG TAB PO SCH (10:36)
[2024-03-19] MEDS: Mometasone 200 MCG/Formoterol 5 MCG 120 PUFF INHALER INH SCH (07:20)
[2024-03-19 08:33] LABS: #Basophils 0.04 10x3/uL (0.0-0.2); #Eosinphils Less than 0.03 10x3/uL (0.0-0.7); %Basophils 0.2 % (0.0-1.0); %Monocytes 5.5 % (0.0-10.0); %Neutrophils 87.2 % (42.0-75.0); Hematocrit 43.1 % (42.0-52.0); Hemoglobin 14.6 g/dL (14.0-18.0); Mean Corpuscular HGB CONC 33.9 g/dL (32.0-36.0); Mean Corpuscular Hemoglobin 32.7 pg (27.0-31.0); Mean Corpuscular Volume 96.4 fL (78.0-98.0); Mean Platelet Volume 11.4 fL (7.4-10.4); Platelet Count 277 10x3/uL (130-400); RBC Distribution Width 14.5 % (11.5-14.5); Red Blood Cell (RBC) Count 4.47 mill/uL (4.70-6.10)
[2024-03-19 08:46] LABS: Anion Gap 13 mmol/L (10-20); BUN (Urea Nitrogen) 21 mg/dL (8.9-20.6); Calc. Creatinine Clearance 147 mL/min (70-130); Calcium 9.6 mg/dL (7.8-10.44); Carbon Dioxide 26 mmol/L (22-29); Chloride 106 mmol/L (98-107); Estimated GFR 117; Glucose 130 mg/dL (70-105); Potassium 4.1 mmol/L (3.5-5.1); Sodium 141 mmol/L (136-145)
[2024-03-19] MEDS: Amlodipine 5 MG TAB PO SCH (09:03)
[2024-03-19] MEDS: Albuterol 2.5 MG (3 mL) NEB NEB PRN (14:34)
[2024-03-20 08:39] LABS: Anion Gap 17 mmol/L (10-20); BUN (Urea Nitrogen) 18 mg/dL (8.9-20.6); Calc. Creatinine Clearance 125 mL/min (70-130); Calcium 9.1 mg/dL (7.8-10.44); Carbon Dioxide 23 mmol/L (22-29); Chloride 102 mmol/L (98-107); Estimated GFR 112; Glucose 270 mg/dL (70-105); Potassium 3.3 mmol/L (3.5-5.1); Sodium 139 mmol/L (136-145)
[2024-03-20 08:44] LABS: #Basophils 0.06 10x3/uL (0.0-0.2); #Eosinphils Less than 0.03 10x3/uL (0.0-0.7); %Basophils 0.3 % (0.0-1.0); %Lymphocytes 6.6 % (21.0-51.0); %Monocytes 6.4 % (0.0-10.0); %Neutrophils 83.4 % (42.0-75.0); Hematocrit 41.9 % (42.0-52.0); Hemoglobin 14.2 g/dL (14.0-18.0); Mean Corpuscular HGB CONC 33.9 g/dL (32.0-36.0); Mean Corpuscular Hemoglobin 32.6 pg (27.0-31.0); Mean Corpuscular Volume 96.3 fL (78.0-98.0); Mean Platelet Volume 12.4 fL (7.4-10.4); Platelet Count 294 10x3/uL (130-400); RBC Distribution Width 14.2 % (11.5-14.5); Red Blood Cell (RBC) Count 4.35 mill/uL (4.70-6.10)
[2024-03-20] MEDS ORDERED: hydrALAZINE 25 MG TAB PO PRN (09:06)
[2024-03-20] MEDS ORDERED: Amlodipine 5 MG TAB PO SCH (09:07)
[2024-03-20] MEDS ORDERED: Glucagon 1 MG/ML KIT IM PRN (10:19)
[2024-03-20] MEDS ORDERED: Dextrose 50% Abboject 50 ML SYRINGE SLOW IVP PRN (10:19)
[2024-03-20] MEDS ORDERED: Dextrose 5% in Water 1,000 ML IV PRN (10:19)
[2024-03-20] MEDS ORDERED: HumaLOG 300 UNITS/3 ML VIAL SC PRN (10:19)
[2024-03-20] MEDS: Amlodipine 10 MG TAB PO SCH (11:26)
[2024-03-20] MEDS: Potassium Chloride 20 MEQ TAB PO SCH (11:26)
[2024-03-20 16:24] VITALS: BP 159/96; TEMP 97.4
[2024-03-20] MEDS ORDERED: Ipratropium/Albuterol 3 ML NEB NEB SCH (19:00)
[2024-03-21] MEDS ORDERED: predniSONE 20 MG TAB PO SCH (08:00)
== END 2024-03-20 18:11 | disposition home or self-care (01) | DRG 189 ==
LOC: ERS 08:54 → T4-A 14:31 → OBSVTOIN 03-17 16:22 → IMCU/EMU 03-17 18:37 → T4-B 03-19 15:47
PROVIDERS: ADMIT Student in an Organized Health Care Education/Training Program; ATTEND Internal Medicine
PROC: 4A033R1 Measurement of Arterial Saturation, Peripheral, Percutaneous Approach (ICD-10-PCS; principal; 2024-03-17)
PROC: 5A09457 Assistance with Respiratory Ventilation, 24-96 Consecutive Hours, Continuous Positive Airway Pressure (ICD-10-PCS; 2024-03-17)
PROC: 5A0935A Assistance with Respiratory Ventilation, Less than 24 Consecutive Hours, High Flow/Velocity Cannula (ICD-10-PCS; 2024-03-18)
DX: J96.01 Acute respiratory failure with hypoxia (principal); J44.1 Chronic obstructive pulmonary disease with (acute) exacerbation; E87.20 Acidosis, unspecified; F17.210 Nicotine dependence, cigarettes, uncomplicated; I45.6 Pre-excitation syndrome; I10 Essential (primary) hypertension; R73.9 Hyperglycemia, unspecified; Z79.51 Long term (current) use of inhaled steroids; Z71.6 Tobacco abuse counseling; Z79.899 Other long term (current) drug therapy; Z82.49 Family history of ischemic heart disease and other diseases of the circulatory system
CPT/HCPCS: 36415; 36416; 71045; 80048; 80053; 82805; 83880; 85025; 93005; 94660; 94760; 96372; 96374; 96375; 96376; C9113; G0378; J0456; J0696; J1650; J2920; J2930; J3475; J3490; J7050; J7611; J7620; J7626

== ENCOUNTER 2025-10-23 17:09 | Emergency (ER) | payer SELFPAY | END 2025-10-23 19:46 | LOC: ERS 17:09 | DX: J45.901 Unspecified asthma with (acute) exacerbation (principal); I10 Essential (primary) hypertension; F17.210 Nicotine dependence, cigarettes, uncomplicated | CPT/HCPCS: 71045; 87428; 93005 ==